=== PATIENT | female | born 1940 | race Caucasian/White ===

== ENCOUNTER 2018-03-22 14:35 | Observation (INO) | payer MEDICARE, OTHER ==
--- NOTE | 2018-03-22 14:52 | CT ---
CT OF BRAIN PERFORMED WITHOUT CONTRAST ENHANCEMENT: Date: 03/22/18 HISTORY: Slurred speech. COMPARISON: 02/18/12. FINDINGS: There is mild ventricular and sulcal prominence with decreased attenuation of the periventricular whi te matter. There are no signs of intracerebral hemorrhage or extra-axial fluid collections. The masto id air cells and visualized sinuses are clear. IMPRESSION: Mild chronic white matter change. No acute intracranial abnormalities. Findings telephoned to Dr. Dior at 1446 hours. CODE CR. POS: ORALIA
[2018-03-22 15:02] LABS: #Basophils 0.1 thou/uL (0.0-0.2); #Eosinphils 0.4 thou/uL (0.0-0.7); #Lymphocytes 1.7 thou/uL (1.20-3.40); #Monocytes 0.7 thou/uL (0.11-0.59); #Neutrophils 4.3 thou/uL (1.40-6.50); %Basophils 0.9 % (0.0-1.0); %Eosinophils 6.1 % (0.0-10.0); %Lymphocytes 23.9 % (21.0-51.0); %Neutrophils 59.1 % (42.0-75.0); Hemoglobin 11.9 g/dL (12.0-16.0); Mean Corpuscular HGB CONC 32.8 g/dL (32.0-36.0); Mean Corpuscular Hemoglobin 30.7 pg (27.0-31.0); Mean Corpuscular Volume 93.7 fl (81.0-99.0); Mean Platelet Volume 7.1 fL (7.4-10.4); Platelet Count 168 thou/uL (130-400); RBC Distribution Width 12.1 % (11.5-14.5); Red Blood Cell (RBC) Count 3.87 mill/uL (4.20-5.40); White Blood Cell (WBC) Count 7.2 thou/uL (4.8-10.8)
[2018-03-22 15:10] LABS: PTT 27.9 SEC (22.9-36.1); Prothrombin Time 13.8 SEC (12.0-14.7)
[2018-03-22 15:18] LABS: ALT (SGPT) 17 U/L (8-55); AST (SGOT) 14 U/L (5-34); Albumin 3.8 g/dL (3.4-4.8); Alkaline Phosphatase 113 U/L (40-150); Anion Gap 12 mmol/L (10-20); BUN (Urea Nitrogen) 26 mg/dL (9.8-20.1); Bilirubin, Total 0.3 mg/dL (0.2-1.2); CK (CPK) 60 U/L (29-168); Calc. Creatinine Clearance 0 mL/min (70-130); Calcium 9.3 mg/dL (7.8-10.44); Carbon Dioxide 21 mmol/L (23-31); Chloride 110 mmol/L (98-107); Estimated GFR-MDRD 54; Globulin 2.6 g/dL (2.4-3.5); Glucose 120 mg/dL (83-110); Potassium 4.2 mmol/L (3.5-5.1); Protein, Total 6.4 g/dL (6.0-8.3); Sodium 139 mmol/L (136-145)
[2018-03-22 15:22] LABS: CKMB 1.7 ng/mL (0-6.6); Troponin I Less than 0.010 ng/mL (< 0.028)
[2018-03-22 15:58] LABS: Bilirubin Negative (Negative); Blood, Urine Negative (Negative)
[2018-03-22 16:00] LABS: Clarity Clear (Clear); Glucose, Urine (Dipstick) Unable to Interpret mg/dL (Negative); Nitrite Unable to Interpret (Negative); Urobilinogen UNABLE TO INTERPRET mg/dL (0.2-1.0)
[2018-03-22 16:01] LABS: Specific Gravity, Urine 1.016 (1.002-1.036)
[2018-03-22 16:02] LABS: Leukocyte Small (Negative); Protein, Urine (Dipstick) Negative (Neg-Trace)
[2018-03-22 16:05] LABS: RBC/HPF 0-3 HPF (0-3); WBC/HPF 21-50 HPF (0-3)
[2018-03-22 16:06] LABS: Bacteria/HPF 2+ HPF (None Seen); Hyaline Casts/LPF NONE SEEN LPF (0-3 Hyaline); Squamous Epithelial 0-3 HPF (0-3)
[2018-03-22 18:32] VITALS: BMI 38.0
[2018-03-22] MEDS ORDERED: Ondansetron ODT 4 MG TAB PO PRN (21:50)
[2018-03-22] MEDS ORDERED: Acetaminophen 325 MG TAB PO PRN (21:50)
[2018-03-23] MEDS ORDERED: Acetaminophen/Codeine 30-300mg Tablet PO PRN (00:14)
[2018-03-23] MEDS ORDERED: Fluticasone Propionate Nasal Spray 16 gm Bottle NASAL PRN (00:14)
[2018-03-23] MEDS ORDERED: clonazePAM 1 MG TAB PO PRN (00:47)
--- NOTE | 2018-03-23 03:43 | HP ---
Primary Care Physician: Della. CHIEF COMPLAINT: Altered neurological status. HISTORY OF PRESENT ILLNESS: This patient is a 77-year-old female who states she has had previous TIA symptoms in the past. A couple of years ago, patient had symptoms similar to a TIA. At that time, she states she saw a neurologist by the name of Lester England. At that time, she had a workup and w as told that her MRI had indicated a couple of strokes. One was remote and one had been more recent. She was told that neither had caused significant damage. The patient also had an episode 10 days a go. The patient was in [place] where her was hospitalized for some cardiac issues. She h ad symptoms similar to today and was admitted there and had a full workup. She states she had an MRI , carotid Doppler, and echocardiogram there. She was told that she likely had a TIA, but there were no new changes in her medications at that time. The patient was in her usual state of health this morning when she awakened. Her pyzburii-ud-gcf not iced, however, that she seemed to be "looking through" her rather than focusing on her. Subsequent t o that; however, she was completely focused and even help create a grocery list for her. The daughte r-in-law left and then son noticed that the patient was again not acting normally and the patient was blinking her right eye and keeping it closed, but was completely unaware of it and subsequently brou ght her to the emergency department and called an ambulance rather. Family reports that the patient might have had some slurred speech as well and was unsteady on her feet, possibly dragging her foot. EMS indicated the patient had elevated blood pressure on their arrival. In the emergency department , it is indicated that the patient had some confusion and stated that the year was 1917 and was "ramb ling about selling the house in [place]." The patient was oriented to person and place; however, she did have a nursing swallowing assessment which she passed. Currently, the patient states she feels like she is completely normal and back to her baseline. She does not remember the events that occurr ed this morning or being in the emergency department. REVIEW OF SYSTEMS: A 10 point review of systems was unremarkable except for those things mentioned i n the history of present illness. PAST MEDICAL HISTORY: Notable for the above-mentioned episodes of apparent transient ischemic attack . Patient had 4 such episodes, the most one being about 10 days ago. The patient reports that she a lso was told that she had a possible urinary tract infection at that time and was placed on p.o. Cipr o. She has a history of frequent urinary tract infections. She has a history of myocardial infarcti on, coronary artery disease, history of hyperlipidemia, hypertension, skin cancer, macular degenerati on and breast cancer. The patient was also recently told by a air export operations agent in [facility] that s he had a nodule on her kidney that they felt might need biopsy or surgical intervention, but the suhas ent has declined to do that and bipolar disorder and Von Willebrand Disease. PAST SURGICAL HISTORY: Mastectomy for left-sided breast cancer, tonsillectomy, hysterectomy, appende ctomy. SOCIAL HISTORY: Patient is a former smoker, quit in 1998. No alcohol or drugs. She is . Janel stanford is very clear that she wishes to be a DO NOT RESUSCITATE and her surrogate decision maker would be her son, Charles. CURRENT MEDICATIONS: The patient recalls that she is taking aspirin, simvastatin, levothyroxine, lis inopril, Prozac and Seroquel. She knows that she has several allergies, but cannot recall what those are presently. PHYSICAL EXAMINATION: VITAL SIGNS: Blood pressure has been running 123/57 up to 134/63. She has been afebrile, O2 sats 94 % on room air, pulse 70s, respirations 16. GENERAL APPEARANCE: Age appropriate female. She is in no distress. She is awake, alert, oriented, pleasant, cooperative, and interacting normally with her family. HEENT: PERRL. No OP lesions. NECK: Supple and symmetric. She has no lymphadenopathy or JVD. HEART: Has regular rate and rhythm without murmurs, gallops or rubs. LUNGS: Clear to auscultation bilaterally. ABDOMEN: Soft, nontender, nondistended, positive bowel sounds, no masses, no organomegaly. EXTREMITIES: Warm and dry. NEUROLOGIC: The patient has no focal deficits. Cranial nerves are intact. She has normal cognition and orientation. PSYCHIATRIC: Patient has normal affect. SKIN: Warm and dry with normal skin turgor. LABORATORY DATA AND IMAGING DATA: White count 7.2, hemoglobin 11.9, platelets 168. INR is 1.0. Sod ium 139, potassium 4.2, chloride 110, CO2 21, BUN is 26, creatinine is 1.0, glucose 120, AST is 14, A LT 17. Troponin less than 0.01. Urine is orange in color with 21-50 white cells, 0-3 red cells, and 2+ bacteria with small leukocyte esterase. CT scan of the brain reveals chronic white matter change s, but no acute intracranial abnormalities. EKG shows sinus rhythm at 92. ASSESSMENT AND PLAN: 1. Acute neurological changes consistent with transient ischemic attack. Her symptoms appeared to b e completely resolved. This was manifested as some disorientation as well as some vague right eye cl osing, slurred speech and possibly dragging her foot as well. All of that appears to be resolved pre sently and the patient is at her baseline. She did receive an extra dose of aspirin in the emergency department. She will remain on a neuro floor in observation telemetry. We will check neuro checks q.4 hours. I think the most important issue would be to obtain the records from [facility] where she just went through a full workup and do not believe it is necessary to repeat that workup at this time. We will consult Neurology; however, I believe most importantly for this patient would be to add some Plavix to her regimen starting tomorrow since she has had the additional dose o f aspirin already today. We will also need to treat the urinary tract infection as that could potent ially be contributory. 2. Urinary tract infection. The patient does not know her allergies, but believe she has some antib iotic allergies. She had been on Cipro previously and that has been resumed now. We will attempt to obtain more information regarding her allergies and follow up on cultures. 3. Essential hypertension. We will continue with her usual outpatient regimen of lisinopril. 4. Hyperlipidemia. Continue with the statin. 5. Reported history of Von Willebrand disease; however, the patient's coagulation at times are josie l. We will need to try to get some verification of that as it seems somewhat unlikely. 6. History of bipolar disorder. The patient is on Prozac and Seroquel. States she takes the Seroqu el at night to help her sleep. She does report that her last transient ischemic attack symptoms occu rred in the morning as well. Concerning this might be some type of a hangover side effect from such a lower dose of the Seroquel. 7. Hypothyroidism. We will try to confirm the patient's medication regimen in the morning and get h er back on the usual doses of her statin, thyroid medication and lisinopril as well. DISPOSITION: The patient is very clear that she prefers DNR status.
[2018-03-23] MEDS ORDERED: Levothyroxine Sodium 50 MCG TAB PO SCH (06:00)
[2018-03-23] MEDS: Non-Formulary Item 1 EACH (Biotin [Biotin] 1,000 MCG) PO SCH ×2 (08:30→16:29)
[2018-03-23] MEDS ORDERED: Cetirizine HCl 10 MG TAB PO SCH (09:00)
[2018-03-23] MEDS ORDERED: hydrOXYzine 25 MG TAB PO SCH (09:00)
[2018-03-23] MEDS ORDERED: KLONOPIN PO SCH (09:00)
[2018-03-23] MEDS ORDERED: Ergocalciferol 1.25 MG(50,000 UNITS) CAP PO SCH (09:00)
[2018-03-23] MEDS ORDERED: Lisinopril 20 MG TAB PO SCH (09:00)
[2018-03-23] MEDS ORDERED: Atorvastatin Calcium 40 MG TAB PO SCH (09:00)
[2018-03-23] MEDS ORDERED: FLUoxetine HCl 20 MG CAP PO SCH (09:00)
[2018-03-23] MEDS ORDERED: Calcium Carbonate + Vit D 1 TAB PO SCH (09:00)
--- NOTE | 2018-03-23 14:32 | PDOC.PN ---
- Subjective Encounter Start Date: 03/23/18 Encounter Start Time: 14:30 Ms. Wayne was seen for follow-up of TIA like symptoms. Currently she is feeling fine. She tells me she had 3 other similar episodes before. - Objective Resuscitation Status: Resuscitation Status DNR:Do Not Resuscitate MAR Reviewed: Yes Vital Signs & Weight: Vital Signs (12 hours) Temp Pulse Resp BP BP Pulse Ox 03/23/18 11:33 99.2 F 89 16 163/74 H 92 L 03/23/18 08:53 145/63 H 03/23/18 08:45 98.8 F 91 18 03/23/18 07:55 98.8 F 91 18 145/63 H 93 L 03/23/18 04:25 98.8 F 81 18 137/64 93 L Weight Weight 215 lb I&O: 03/22/18 03/23/18 03/24/18 06:59 06:59 06:59 Intake Total 700 Balance 700 Result Diagrams: 03/22/18 14:56 03/22/18 14:56 Phys Exam - Physical Examination HEENT: PERRLA Respiratory: no wheezing, no rales, no rhonchi, clear to auscultation bilateral Cardiovascular: RRR, no significant murmur, no rub Gastrointestinal: soft, non-tender, positive bowel sounds Musculoskeletal: no edema Dx/Plan (1) TIA (transient ischemic attack) Status: Acute (2) Hypertension Code(s): I10 - ESSENTIAL (PRIMARY) HYPERTENSION Status: Acute (3) Coronary artery disease Code(s): I25.10 - ATHSCL HEART DISEASE OF [place] CORONARY ARTERY W/O ANG PCTRS Status: Acute (4) Dyslipidemia Code(s): E78.5 - HYPERLIPIDEMIA, UNSPECIFIED Status: Acute - Plan * ? TIA- will continue aspirin and Plavix - ? seizure like symptoms as well * HTN- blood pressure is a bit elevated- will monitor * Dyslipidemia- continue Lipitor * Await for Neurology opinion. * UTI- Urine culture is growing gram negative rods- 100K cfu, continue Cipro pending ID and Sensitivities
[2018-03-23 15:39] VITALS: BP 149/66; TEMP 99.6
[2018-03-23] MEDS ORDERED: Biotin 1,000 MCG PO SCH (17:00)
--- NOTE | 2018-03-24 00:08 | CON ---
DATE OF CONSULTATION: 03/23/2018 REFERRING PHYSICIAN: Ranjeet Fitzpatrick M.D. REASON FOR CONSULTATION: TIA. HISTORY OF PRESENT ILLNESS: Ms. Wayne is a pleasant, 77-year-old, female, who has been consu lted for evaluation of TIA. History is obtained from the patient and her son, who was present at bed side. Apparently, patient had an episode of passing out and confusion. The son reports that about 1 0 days ago she had an episode of passing out. His had found her confused and took her to the [facility] where she had MRI of brain done. She was seen by neurologist there, Dr. Monteiro and was told that she may have had a stroke, and she was then discharged to home. She wa s doing well without any complications following that event. Yesterday, she had an episode where her przknecb-ec-qck noticed that she was not acting appropriately. She was acting confused. She had cl osed her right eye and was apparently blinking; however, when asked, she said she did not realize dacia t she was doing that, this concerned her, and thus, she had called EMS and she was brought to [facility] Emergency Room. She has no recollection of the event that took place. She states that the last thing she remembers was sitting on the table talking to the family members and the next thing she rem embers is waking up in ambulance. She had episodes of passing out about a year ago, at which time, s he had seen Dr. England at [facility] and had an extensive workup done, which was apparently no rmal. She was told that she may have had a mini stroke, and no further testing is to be done and dacia t she never followed up until this recent episodes of passing out. She has no prior history of seizu re disorder. She has not had any convulsions, tongue biting or loss of bladder control. PAST MEDICAL HISTORY: Significant for TIA, urinary tract infection, hypertension, coronary artery di sease, hyperlipidemia, skin cancer, macular degeneration, and breast cancer. PAST SURGICAL HISTORY: Significant for mastectomy, tonsillectomy, hysterectomy, appendectomy. SOCIAL HISTORY: She is a former smoker, quit in 1988. She denies alcohol use or illicit drug use. CURRENT MEDICATIONS: Please review MAR. ALLERGIES: No known drug allergies. FAMILY HISTORY: Noncontributory. REVIEW OF SYSTEMS: As mentioned in the HPI, otherwise negative. PHYSICAL EXAMINATION: VITAL SIGNS: Blood pressure 149/66, pulse of 87, temperature of 99.6, respirations of 16, O2 sats of 94% on room air. GENERAL: Well developed, well nourished, female, in no apparent distress. RESPIRATORY: Clear to auscultation bilaterally. CARDIOVASCULAR: Regular rate and rhythm. NEUROLOGIC: Mental status: The patient is awake, alert, oriented x3. Speech and language: Fluent speech. Cranial nerves: Pupils are 3 mm and reactive. Visual angel are intact. External muscles are intact. No nystagmus noted. Face is symmetric. Tongue and uvula are midline. Motor exam showe d normal tone and bulk with a 5/5 strength in both upper and lower extremities. Sensory: Sensation is intact and symmetric. Deep tendon reflexes 2+ reflexes in both upper and lower extremities. Tran nski: Plantar responses flexion bilaterally. Coordination intact to wwmlze-qcwl-owfuzd and finger t apping bilaterally. LABORATORY DATA: Labs are reviewed, which included CBC, coag panel, CMP, urinalysis, which is signif icant for hemoglobin 11.9. Urinalysis showed 21-50 wbc, 2+ bacteria, small leukocyte esterase, other perez unremarkable. IMAGING STUDIES: CT head without contrast was reviewed, which showed no acute intracranial abnormali ty. IMPRESSION: 1. Altered mental status. 2. Syncope, could be a seizure induced. ASSESSMENT AND PLAN: Ms. Wayne is a pleasant, 77-year-old, female, who presented with the ep isodes of confusion and passing out. She has had 2 more episodes about a year ago and had extensive workup done, which was apparently normal. Based on the decision of her spells, this could be a compl ex less seizure. At this time, I discussed with the patient and her performing a medical yudith t and further neurological testing including MRI of brain with and without contrast and electroenceph alography. I also discussed about starting her on antiepileptic medication as her episodes may have b een seizure in nature; however, they decided to not start on any medication at this time. I will ob tain an MRI of brain with and without contrast and electroencephalography for further evaluation. I may start her on antiepileptic medication after MRI and electroencephalography are done. Thank you for consultation.
--- NOTE | 2018-03-24 13:18 | DIS ---
DATE OF ADMISSION: 03/23/2018 DATE OF DISCHARGE: 03/24/2018 PRIMARY CARE PHYSICIAN: Dr. Hull. DISCHARGE DISPOSITION: Home. PRIMARY DISCHARGE DIAGNOSES: 1. Transient ischemic attack. 2. Hypertension. 3. Hyperlipidemia. 4. Urinary tract infection. 5. History of bipolar disorder. 6. Hypothyroidism. DISCHARGE MEDICATIONS: Include aspirin 81 mg daily, lisinopril 20 mg daily, Os-Jean D 500 two tablets a day, Protonix 40 mg daily, Seroquel 400 mg q.p.m., Prozac 60 mg daily, Klonopin 2 mg daily, Flonas e nasal spray daily, vitamin D2 50,000 units daily, Zyrtec 10 mg twice a day, biotin 1000 mcg q.i.d., Lipitor 40 mg daily, Atarax 25 mg daily, aspirin 81 mg daily, and Tylenol #3 as needed. PROCEDURES DONE DURING ADMISSION: The patient had a CT scan of the brain which was negative for any acute intracranial abnormalities. There was some mild chronic white matter change. CODE STATUS: FULL CODE. ALLERGIES: Unknown, but she says she is allergic to multiple antibiotics. HOSPITAL COURSE: Ms. Wayne is a pleasant 77-year-old female who presented to the emergency room with c omplaints of altered mental status, i.e. appearing is that she was looking through her daughter cara munguia than focusing on her as well as some mild confusion. She had recently been admitted to the [facility] in [place] with similar symptoms and had a full workup for transient ischemic attack, which was negative. She was placed in observation here in our facility and a Neurology consult was obtained. We also requested the records from [place], but we were not able to obtain them prior to her disch arge. The neurologist recommended that the patient undergo an MRI as well as an EEG to rule out pote ntial seizure; however, since her symptoms had returned to baseline and she was currently symptom rohit e and actually asking to go home, she was discharged and will follow up with her neurologist for furt her recommendations.
== END 2018-03-23 18:48 | disposition home or self-care (01) ==
LOC: ERS 14:35 → 2SE 17:00
PROVIDERS: ADMIT Family Medicine; ATTEND Family Medicine
DX: G45.9 Transient cerebral ischemic attack, unspecified (principal); I10 Essential (primary) hypertension; E78.5 Hyperlipidemia, unspecified; N39.0 Urinary tract infection, site not specified; E03.9 Hypothyroidism, unspecified; I25.10 Atherosclerotic heart disease of native coronary artery without angina pectoris; Z79.82 Long term (current) use of aspirin; Z79.52 Long term (current) use of systemic steroids; Z79.899 Other long term (current) drug therapy; Z88.1 Allergy status to other antibiotic agents; Z87.891 Personal history of nicotine dependence
CPT/HCPCS: 70450; 80053; 82550; 82553; 82962; 84484; 85025; 85610; 85730; 87077; 87086; 87186; 93005; 94760; 96365; 99285; G0378; 36415; 36416; 81003; 81015; J0744

== ENCOUNTER 2018-03-24 15:05 | Emergency (ER) | payer MEDICARE, OTHER ==
--- NOTE | 2018-03-24 16:12 | CT ---
CT BRAIN WITHOUT CONTRAST: Indication: Increased falls after being discharged from the hospital today for recent UTI. Comparison: 03-22-18 FINDINGS: Chronic small vessel white matter ischemic change is similar appearing. No acute infarct, hemorrhage, or hydrocephalus is present. Septum pellucidum and third ventricle are midline. Skull and extracrani al soft tissues are unremarkable. IMPRESSION: No acute intracranial abnormality. POS: RAMOS
[2018-03-24 16:13] LABS: #Basophils 0.1 thou/uL (0.0-0.2); #Eosinphils 0.5 thou/uL (0.0-0.7); #Lymphocytes 1.8 thou/uL (1.20-3.40); #Monocytes 0.8 thou/uL (0.11-0.59); #Neutrophils 5.9 thou/uL (1.40-6.50); %Basophils 0.6 % (0.0-1.0); %Eosinophils 5.8 % (0.0-10.0); %Lymphocytes 19.8 % (21.0-51.0); %Monocytes 8.9 % (0.0-10.0); Mean Corpuscular HGB CONC 33.7 g/dL (32.0-36.0); Mean Corpuscular Hemoglobin 31.2 pg (27.0-31.0); Mean Corpuscular Volume 92.5 fl (81.0-99.0); Mean Platelet Volume 6.9 fL (7.4-10.4); Platelet Count 191 thou/uL (130-400); RBC Distribution Width 11.9 % (11.5-14.5); Red Blood Cell (RBC) Count 4.17 mill/uL (4.20-5.40); White Blood Cell (WBC) Count 9.1 thou/uL (4.8-10.8)
[2018-03-24 16:35] LABS: ALT (SGPT) 17 U/L (8-55); AST (SGOT) 15 U/L (5-34); Alkaline Phosphatase 127 U/L (40-150); Anion Gap 13 mmol/L (10-20); BUN (Urea Nitrogen) 25 mg/dL (9.8-20.1); Bilirubin, Total 0.5 mg/dL (0.2-1.2); Calc. Creatinine Clearance 0 mL/min (70-130); Calcium 9.4 mg/dL (7.8-10.44); Carbon Dioxide 26 mmol/L (23-31); Chloride 106 mmol/L (98-107); Estimated GFR-MDRD 47; Globulin 2.9 g/dL (2.4-3.5); Glucose 88 mg/dL (83-110); Potassium 4.6 mmol/L (3.5-5.1); Protein, Total 6.9 g/dL (6.0-8.3); Sodium 140 mmol/L (136-145)
== END 2018-03-24 17:50 | disposition home or self-care (01) ==
LOC: ERS 15:05
DX: R29.6 Repeated falls (principal); I25.2 Old myocardial infarction; I25.10 Atherosclerotic heart disease of native coronary artery without angina pectoris; E78.5 Hyperlipidemia, unspecified; I10 Essential (primary) hypertension; F31.9 Bipolar disorder, unspecified; F41.9 Anxiety disorder, unspecified; Z85.3 Personal history of malignant neoplasm of breast; Z87.891 Personal history of nicotine dependence; Z86.73 Personal history of transient ischemic attack (TIA), and cerebral infarction without residual deficits; W19.XXXA Unspecified fall, initial encounter; Y92.009 Unspecified place in unspecified non-institutional (private) residence as the place of occurrence of the external cause
CPT/HCPCS: 36415; 70450; 80053; 85025; 93005